=== PATIENT | male | born 1960 | race African-American/Black ===

== ENCOUNTER 2020-01-26 21:59 | Emergency (ER) | payer MEDICAID ==
[~2020-01-26] VITALS: Ht 167.6 cm; Wt 64.0 kg
[2020-01-27] MEDS ORDERED: PREDNISONE 20MG TABLET PO STA (00:17)
== END 2020-01-27 01:09 | disposition home or self-care (01) ==
LOC: ER 21:59
DX: J45.901 Unspecified asthma with (acute) exacerbation (principal); J44.9 Chronic obstructive pulmonary disease, unspecified; E05.90 Thyrotoxicosis, unspecified without thyrotoxic crisis or storm; Z98.890 Other specified postprocedural states; Z20.828 Contact with and (suspected) exposure to other viral communicable diseases
CPT/HCPCS: 71045; 87635; 99283; J7512

== ENCOUNTER 2020-05-08 19:44 | Inpatient (IN) | payer MEDICAID ==
[~2020-05-08] VITALS: Ht 157.5 cm; Wt 60.6 kg
[2020-05-08] MEDS ORDERED: ALBUTEROL 6.7GM HFA INHALER ORI ONE (20:15)
[2020-05-08] MEDS ORDERED: METHYLPREDNISOLONE SOD SUCC 125 MG/2 ML VIAL IV ONE (20:15)
[2020-05-08 21:43] LABS: BASOPHILS % 0.4 % (0.0-2.0); EOSINOPHILS % 7.6 % (0.0-5.0); HEMATOCRIT. 44.6 % (42.0-52.0); HEMOGLOBIN. 14.8 g/dL (14.0-18.0); LYMPHOCYTES % 23.1 % (20.0-50.0); MEAN CORPUSCULAR HEMOGLOBIN 30.2 pg (28.0-32.0); MEAN CORPUSCULAR VOLUME 90.7 fL (80.0-94.0); MEAN PLATELET VOLUME 7.6 fl (7.4-10.4); MONOCYTES % 7.3 % (2.0-8.0); NEUTROPHILS % 61.6 % (40.0-76.0); PLATELET 264 x1000/uL (130-400); RED BLOOD CELL COUNT 4.91 mill/uL (4.7-6.1); RED CELL DISTRIBUTION WIDTH 14.8 % (11.6-14.6)
[2020-05-08 21:46] LABS: CHLORIDE 104 mEq/L (98-107)
[2020-05-08 21:55] LABS: CREATINE KINASE 539 IU/L (39-308)
[2020-05-08 23:00] VITALS: BP 116/75
[2020-05-08 23:30] VITALS: BP 116/75
[2020-05-08] MEDS ORDERED: CEFTRIAXONE 1 G PREMIX 50 ML IV SCH (23:30)
[2020-05-08] MEDS ORDERED: ACETAMINOPHEN 325MG TABLET PO PRN (23:30)
[2020-05-09] MEDS ORDERED: ALBU6.7H9 INH (00:20)
[2020-05-09] MEDS: ALBUTEROL 6.7GM HFA INHALER ORI SCH ×7 (01:00→23:19)
[2020-05-09] MEDS: AZITHROMYCIN 500 MG in DEXT 5% WATER 250 ML IV SCH ×2 (01:59→20:54)
[2020-05-09] MEDS: CEFTRIAXONE 1,000 MG in DEXTROSE 5% WATER 50 ML IV SCH ×2 (03:08→22:37)
[2020-05-09 04:00] VITALS: BP 106/54
[2020-05-09] MEDS: METHYLPREDNISOLONE SOD SUCC 40 MG/ML VIAL IV SCH ×3 (05:25→22:37)
[2020-05-09 08:00] VITALS: BP 103/61
[2020-05-09] MEDS: ENOXAPARIN 40MG/0.4ML SYR SUBCUT SCH (08:38)
[2020-05-09 12:00] VITALS: BP 109/71
[2020-05-09 16:00] VITALS: BP 106/68
[2020-05-09 20:00] VITALS: BP 122/54
[2020-05-09 21:45] LABS: T4 FREE 0.95 ng/dL (0.76-1.46)
[2020-05-09 23:56] LABS: *AMPHETAMINES SCREEN URINE PRESUMTIVE POSITIVE (NEGATIVE); *BARBITURATES SCREEN URINE NEGATIVE (NEGATIVE); *BENZODIAZEPINES SCREEN URINE NEGATIVE (NEGATIVE); *COCAINE SCREEN URINE NEGATIVE (NEGATIVE); METHADONE URINE SCREEN NEGATIVE (NEGATIVE)
[2020-05-09 23:57] LABS: CANNABINOID URINE SCREEN PRESUMTIVE POSITIVE (NEGATIVE); OPIATES URINE SCREEN NEGATIVE (NEGATIVE); PHENCYCLIDINE URINE SCREEN NEGATIVE (NEGATIVE)
[2020-05-10] VITALS: BP 114/72
[2020-05-10] MEDS: ALBUTEROL 6.7GM HFA INHALER ORI SCH ×2 (03:52→08:00)
[2020-05-10 04:00] VITALS: BP 113/70
[2020-05-10] MEDS: METHYLPREDNISOLONE SOD SUCC 40 MG/ML VIAL IV SCH (05:48)
[2020-05-10 08:00] VITALS: BP 152/99
[2020-05-10] MEDS: ENOXAPARIN 40MG/0.4ML SYR SUBCUT SCH (09:00)
[2020-05-10] MEDS ORDERED: CLONIDINE 0.1MG TABLET PO PRN (09:15)
== END 2020-05-10 10:00 | disposition left against medical advice (07) | DRG 140 ==
LOC: ER 19:44 → 7WST 21:45 → EDBEDREQ 21:52 → EDBEDREQTM 21:52 → ENRESERV 22:09 → 5WST 05-09 23:05
PROVIDERS: ADMIT Internal Medicine; ATTEND Internal Medicine
DX: J44.1 Chronic obstructive pulmonary disease with (acute) exacerbation (principal); R65.11 Systemic inflammatory response syndrome (SIRS) of non-infectious origin with acute organ dysfunction; J96.00 Acute respiratory failure, unspecified whether with hypoxia or hypercapnia; Z60.2 Problems related to living alone; E03.9 Hypothyroidism, unspecified; Z59.0 Homelessness; Z79.899 Other long term (current) drug therapy; Z03.818 Encounter for observation for suspected exposure to other biological agents ruled out
CPT/HCPCS: 36415; 71045; 80053; 80305; 82550; 83880; 84439; 84443; 84481; 84484; 85025; 85379; 87635; 93005; 94640; 96365; 99291; J0456; J0696; J1650; J2920; J2930; J7060

== ENCOUNTER 2020-08-24 17:05 | Emergency (ER) | payer MEDICAID ==
[~2020-08-24] VITALS: Ht 172.7 cm; Wt 63.5 kg
[~2020-08-24 17:05] MED LIST: ALBU6.7H9 INH
[2020-08-24] MEDS ORDERED: ALBUTEROL (0.083%) 2.5MG/3ML NEB HHN STA (18:53)
[2020-08-24] MEDS ORDERED: IPRATROPIUM BROMIDE (0.02%) 0.5MG/2.5ML NEB HHN STA (18:53)
[2020-08-24] MEDS ORDERED: PREDNISONE 20MG TABLET PO STA (18:53)
[2020-08-24] MEDS ORDERED: PREDNISONE 20MG TABLET PO NR (19:15)
[2020-08-24 20:36] LABS: BASOPHILS % 0.8 % (0.0-2.0); HEMATOCRIT. 42.8 % (42.0-52.0); HEMOGLOBIN. 14.4 g/dL (14.0-18.0); LYMPHOCYTES % 26.4 % (20.0-50.0); MEAN CORPUSCULAR HEMOGLOBIN 30.1 pg (28.0-32.0); MEAN CORPUSCULAR VOLUME 89.8 fL (80.0-94.0); MONOCYTES % 8.2 % (2.0-8.0); NEUTROPHILS % 57.6 % (40.0-76.0); PLATELET 334 x1000/uL (130-400); RED BLOOD CELL COUNT 4.77 mill/uL (4.7-6.1); RED CELL DISTRIBUTION WIDTH 14.1 % (11.6-14.6)
[2020-08-24 20:46] LABS: CHLORIDE 105 mEq/L (98-107)
[2020-08-24 21:46] VITALS: BP 132/90
== END 2020-08-24 21:50 | disposition home or self-care (01) ==
LOC: ER 17:05
DX: J44.1 Chronic obstructive pulmonary disease with (acute) exacerbation (principal); J45.901 Unspecified asthma with (acute) exacerbation; Z98.890 Other specified postprocedural states
CPT/HCPCS: 36415; 71045; 80053; 85025; 93005; 94640; 99285; J7512; Z7610